=== PATIENT | female | born 1950 | race Caucasian/White ===

== ENCOUNTER → 2019-08-10 | Outpatient (CLI) | payer MEDICARE ==
[~2019-08-10] MED LIST: AMLO10TA8 PO; ASPI-515 PO; ATOR20TA PO; BENA40TA3 PO; DICL100T80 PO; FISH OIL PO; HYDR25TA6 PO; LEVO112T4 PO; METF500T17 PO; MULT-709 PO; OMEGA PO; [UNRECOGNIZED DRUG - OTHER] PO
[2019-08-10 15:17] LABS: BASOPHILS # (AUTO) 0.03 x10^3/uL (0-0.1); BASOPHILS % (AUTO) 0 % (0-1); EOSINOPHILS # (AUTO) 0.32 x10^3/uL (0-0.4); EOSINOPHILS % (AUTO) 4 % (1-7); LYMPHOCYTES # (AUTO) 2.43 x10^3/uL (1-3.4); LYMPHOCYTES % (AUTO) 28 % (22-44); MD NO; MEAN CORPUSCULAR HEMOGLOBIN 30.9 pg (27.0-34.8); MEAN CORPUSCULAR HGB CONC 32.5 g/dL (32.4-35.8); MEAN CORPUSCULAR VOLUME 94.9 fL (80-100); MEAN PLATELET VOLUME 8.1 fL (7.4-10.4); MONOCYTES # (AUTO) 0.57 x10^3/uL (0.2-0.8); MONOCYTES % (AUTO) 7 % (2-9); NEUTROPHILS # (AUTO) 5.23 x10^3/uL (1.8-6.8); NEUTROPHILS % (AUTO) 61 % (42-75); PLATELET COUNT 421 x10^3/uL (130-400); RED BLOOD COUNT 4.62 x10^6/uL (3.82-5.3); RED CELL DISTRIBUTION WIDTH 13.9 % (9.6-15.2)
[2019-08-10 15:31] LABS: ANION GAP 4 mmol/L (5-15); CALCIUM 9.9 mg/dL (8.5-10.1); CHLORIDE 108 mmol/L (98-107)
[2019-08-10 15:36] LABS: ALANINE AMINOTRANSFERASE 37 U/L (12-78); ALKALINE PHOSPHATASE 72 U/L (45-117); BILIRUBIN,TOTAL 0.6 mg/dL (0.2-1.0); CREATININE 0.87 mg/dL (0.55-1.02); TOTAL PROTEIN 7.4 g/dL (6.4-8.2)
== END | disposition home or self-care (01) ==
LOC: STAR 13:11
PROVIDERS: ATTEND Orthopaedic Surgery
DX: Z01.818 Encounter for other preprocedural examination (principal); M17.0 Bilateral primary osteoarthritis of knee
CPT/HCPCS: 36415; 80053; 85025; 87081; 93005

== ENCOUNTER 2019-08-26 07:22 | Observation (INO) | payer MEDICARE ==
[~2019-08-26] VITALS: Ht 167.6 cm; Wt 94.6 kg
[~2019-08-26 07:22] MED LIST changes: +EPINEPHRINE 1 MG/ML, 1ML ONE; +KETOROLAC 60 MG/2 ML ONE; +ROPIvacaine/PF 0.2%, 20 ML ONE; +TRANEXAMIC ACID 100 MG/ML, 10ML ONE; +VANCOMYCIN 1,000 MG ONE
[2019-08-26] MEDS ORDERED: LACTATED RINGERS 1,000 ML IV SCH (08:02)
[2019-08-26 08:25] VITALS: BP 117/81
[2019-08-26] MEDS ORDERED: ACETAMINOPHEN 500 MG TABLET PO ONE (08:30)
[2019-08-26] MEDS ORDERED: GABAPENTIN 300 MG CAPSULE PO ONE (08:30)
[2019-08-26] MEDS ORDERED: LIDOCAINE-MPF 1%, 2ML INFIL ONE (08:30)
[2019-08-26] MEDS ORDERED: FENTANYL PF 100 MCG/2ML ONE ×2 (08:57→10:08)
[2019-08-26] MEDS ORDERED: MIDAZOLAM 1 MG/ML, 2ML ONE (08:57)
[2019-08-26] MEDS ORDERED: PROPOFOL 50 ML ONE (10:06)
[2019-08-26] MEDS ORDERED: METOPROLOL 1 MG/ML, 5ML ONE (10:22)
[2019-08-26] MEDS ORDERED: HYDROmorphone 2 MG/ML, 1ML IVPush PRN (10:30)
[2019-08-26] MEDS ORDERED: MEPERIDINE/PF 25MG/ML,1ML IVPush PRN (10:30)
[2019-08-26] MEDS ORDERED: PROMETHAZINE 25 MG/ML, 1ML IV PRN (10:30)
[2019-08-26] MEDS ORDERED: ALBUTEROL/IPRATROPIUM 2.5MG/0.5MG, 3 ML NPPB PRN (10:30)
[2019-08-26] MEDS ORDERED: FENTANYL PF 100 MCG/2ML IV PRN (10:30)
[2019-08-26] MEDS ORDERED: OXYcodone 5 MG/5 ML ORAL.SOL UDC PO PRN (10:30)
[2019-08-26] MEDS ORDERED: METOPROLOL 1 MG/ML, 5ML IV PRN (10:30)
[2019-08-26] MEDS ORDERED: hydrALAzine 20 MG/ML, 1ML IV PRN (10:30)
[2019-08-26] MEDS ORDERED: MIDAZOLAM 1 MG/ML, 2ML IV PRN (10:30)
[2019-08-26] MEDS ORDERED: LIDOCAINE-MPF 2% ,5ML ONE (10:32)
[2019-08-26] MEDS ORDERED: ONDANSETRON 2MG/ML, 2ML ONE (10:32)
[2019-08-26] MEDS ORDERED: DEXAMETHASONE 4 MG/ML, 1ML ONE (10:32)
[2019-08-26] MEDS ORDERED: CEFAZOLIN 1,000 MG ONE (10:32)
[2019-08-26] MEDS ORDERED: BUPIVACAINE/PF 0.25% ONE (10:32)
[2019-08-26] MEDS ORDERED: PROPOFOL 10 MG/ML, 20ML ONE (10:32)
[2019-08-26] MEDS: SODIUM CHLORIDE 0.9% 1,000 ML IV SCH ×2 (11:16→17:44)
[2019-08-26] MEDS ORDERED: ONDANSETRON 4 MG TABLET PO PRN (11:30)
[2019-08-26] MEDS ORDERED: BISACODYL 10 MG SUPP PR PRN (11:30)
[2019-08-26] MEDS ORDERED: HYDROmorphone 1 MG/ML, 1ML INJ IVPush PRN (11:30)
[2019-08-26] MEDS ORDERED: DIAZEPAM 5 MG TABLET PO PRN (11:30)
[2019-08-26] MEDS ORDERED: MAGNESIUM HYDROXIDE 8%, 30ML UDC PO PRN (11:30)
[2019-08-26] MEDS ORDERED: ONDANSETRON 2MG/ML, 2ML IV PRN (11:30)
[2019-08-26] MEDS ORDERED: ALUMINUM/MAG/SIMETHICONE 30 ML UDC PO PRN (11:30)
[2019-08-26] MEDS ORDERED: SCOPOLAMINE PATCH, 1.5MG PATCH.TD72 TD SCH (11:30)
[2019-08-26] MEDS ORDERED: PROMETHAZINE 25 MG/ML, 1ML IM PRN (11:30)
[2019-08-26] MEDS ORDERED: PROMETHAZINE 12.5 MG SUPP PR PRN (11:30)
[2019-08-26] MEDS ORDERED: SENNA/DOCUSATE TABLET PO PRN (11:30)
[2019-08-26] MEDS ORDERED: ZOLPIDEM 5MG TABLET PO PRN (11:30)
[2019-08-26] MEDS ORDERED: OXYcodone IR 5MG TABLET PO PRN (11:30)
[2019-08-26] MEDS ORDERED: PSYLLIUM PACKET PO PRN (11:30)
[2019-08-26] MEDS ORDERED: DIPHENHYDRAMINE 50 MG CAPSULE PO PRN (11:30)
[2019-08-26] MEDS ORDERED: TRANEXAMIC ACID 1,000 MG in SODIUM CHLORIDE 0.9% 100 ML IVPB ONE (11:45)
[2019-08-26] MEDS: CALCIUM/VITAMIN D3 250-125 TABLET PO SCH ×2 (12:00→17:40)
[2019-08-26 12:30] VITALS: BP 129/78
[2019-08-26] MEDS: ACETAMINOPHEN 500 MG TABLET PO SCH ×2 (14:54→20:03)
[2019-08-26] MEDS: TAMSULOSIN 0.4 MG CAP.ER.24H PO SCH (14:54)
[2019-08-26] MEDS: KETOROLAC 30 MG/1 ML IV SCH (17:40)
[2019-08-26] MEDS: ASPIRIN 81 MG TABLET EC PO SCH ×2 (17:40→20:06)
[2019-08-26] MEDS: CEFAZOLIN PMX 2GM/50ML 50 ML IVPB SCH (17:40)
[2019-08-26] MEDS: FERROUS SULFATE 325 MG TABLET PO SCH (17:40)
[2019-08-26 19:54] VITALS: BP 112/68
[2019-08-26] MEDS: DOCUSATE 100 MG CAPSULE PO SCH (20:03)
[2019-08-26] MEDS ORDERED: metFORMIN 500 MG TABLET PO SCH (21:00)
[2019-08-26] MEDS ORDERED: ATORVASTATIN 20 MG TABLET PO SCH (21:00)
[2019-08-26 23:42] VITALS: BP 117/71
[2019-08-27] MEDS: CEFAZOLIN PMX 2GM/50ML 50 ML IVPB SCH (01:01)
[2019-08-27] MEDS: KETOROLAC 30 MG/1 ML IV SCH ×2 (01:01→08:52)
[2019-08-27] MEDS: ACETAMINOPHEN 500 MG TABLET PO SCH ×2 (03:08→08:52)
[2019-08-27 03:59] VITALS: BP 115/71
[2019-08-27] MEDS ORDERED: DEXAMETHASONE 4 MG/ML, 1ML IVPush ONE (06:00)
[2019-08-27 08:33] VITALS: BP 122/76
[2019-08-27] MEDS: CALCIUM/VITAMIN D3 250-125 TABLET PO SCH (08:52)
[2019-08-27] MEDS: ASPIRIN 81 MG TABLET EC PO SCH (08:52)
[2019-08-27] MEDS: DOCUSATE 100 MG CAPSULE PO SCH (08:53)
[2019-08-27] MEDS: FERROUS SULFATE 325 MG TABLET PO SCH (08:53)
[2019-08-27] MEDS: TAMSULOSIN 0.4 MG CAP.ER.24H PO SCH (08:53)
[2019-08-27] MEDS ORDERED: LEVOTHYROXINE 112 MCG TABLET PO SCH (09:00)
[2019-08-27] MEDS ORDERED: BENAZEPRIL 20 MG TABLET PO SCH (09:00)
[2019-08-27] MEDS ORDERED: AMLODIPINE 10 MG TAB PO SCH (09:00)
[2019-08-27] MEDS ORDERED: ASCORBIC ACID 500 MG TABLET PO SCH (09:00)
[2019-08-27] MEDS ORDERED: MULTIVITAMINS/MINERALS TABLET PO SCH (09:00)
[2019-08-27] MEDS ORDERED: HYDROCHLOROTHIAZIDE 25 MG TABLET PO SCH (09:00)
[2019-08-27] MEDS ORDERED: OXYC5TAB3 PO (09:32)
== END 2019-08-27 10:44 | disposition home or self-care (01) ==
LOC: OUT 07:22 → 4NE 13:09 → OUT 23:25 → 4NE 23:26 → DCLOUNGE 08-27 10:30
PROVIDERS: ADMIT Orthopaedic Surgery; ATTEND Orthopaedic Surgery
DX: M17.12 Unilateral primary osteoarthritis, left knee (principal); I10 Essential (primary) hypertension; E78.5 Hyperlipidemia, unspecified; E66.9 Obesity, unspecified; Z68.32 Body mass index [BMI] 32.0-32.9, adult; E11.9 Type 2 diabetes mellitus without complications; E07.9 Disorder of thyroid, unspecified; Z87.891 Personal history of nicotine dependence
CPT/HCPCS: 27447; 36415; 73560; 82962; 85014; 85018; 96365; 96366; 96375; 96376; 97116; 97162; 97530; C1713; C1776; G0378; J0171; J0690; J1100; J1885; J2250; J2405; J2704; J2795; J3010; J3370; J3490; J7030; J7120